=== PATIENT | male | born 1975 | race Caucasian/White ===

== ENCOUNTER 2016-09-27 21:05 | Emergency (ER) | payer SELFPAY ==
[~2016-09-27] VITALS: Ht 182.9 cm; Wt 87.1 kg
--- NOTE | 2016-09-27 21:11 | NUR ---
BBRA; SYNCOPE EPISODE WITH NAUSEA/ VOMIT. GOWNED PT. AWAITING MD ORDER.
[2016-09-27] MEDS ORDERED: IV NS 0.9% 1,000 ML ONE (21:19)
[2016-09-27] MEDS ORDERED: IV SET PRIMARY PUMP SET 1 EA INFUS.SET MC ONE (21:19)
--- NOTE | 2016-09-27 21:20 | NUR ---
DR GREGG AT BEDSIDE FOR EVAL
--- NOTE | 2016-09-27 21:23 | NUR ---
EKG IN PROGRESS
[2016-09-27] MEDS ORDERED: IV NS 0.9% 1,000 ML BAG IV ONE (21:30)
[2016-09-27 21:51] LABS: BASOPHILS % (AUTO) 0.4 % (0.0-2.0); EOSINOPHILS # (AUTO) 0.2 /CMM (0.0-0.7); EOSINOPHILS % (AUTO) 3.3 % (0.0-6.0); HEMATOCRIT 40 % (39-51); HEMOGLOBIN 13.3 g/dL (13.5-17.5); LYMPHOCYTES % (AUTO) 42.3 % (20.0-44.0); MEAN CORPUSCULAR HEMOGLOBIN 30 PG (26.0-33.0); MEAN CORPUSCULAR HGB CONC 33 g/dl (31.0-36.0); MEAN CORPUSCULAR VOLUME 90 fL (80-96); MONOCYTES # (AUTO) 0.7 /CMM (0.1-1.30); MONOCYTES % (AUTO) 9.8 % (2.0-12.0); NEUTROPHILS # (AUTO) 3.2 /CMM (1.8-8.9); NEUTROPHILS % (AUTO) 44.2 % (43.0-81.0); PLATELET COUNT (AUTO) 301 /CMM (150-450); RDW COEFFICIENT OF VARIATION 14.4 (11.5-15.0); RED BLOOD CELL COUNT(AUTO) 4.48 MIL/uL (4.5-6.0); WHITE BLOOD COUNT (AUTO) 7.2 K/uL (4.3-11.0)
[2016-09-27 22:03] LABS: CALCIUM, SERUM 8.6 mg/dL (8.5-10.1); CREATININE 1.1 mg/dL (0.6-1.3)
[2016-09-27 22:10] LABS: POTASSIUM 2.8 mmol/L (3.5-5.1)
[2016-09-27] MEDS ORDERED: POTASSIUM CHLORIDE 20 MEQ TAB.PRT.SR PO ONE ×3 (22:20→22:30)
--- NOTE | 2016-09-27 22:36 | NUR ---
PT OK TO DISCHARGE PER DR JORDAN. IV removed. Catheter intact and site benign. Pressure and 4x4 applied to site. No bleeding noted.Patient discharged to home in stable condition. Written and verbal after care instructions given. Patient verbalizes understanding of instruction.Patient is awake and alert to self, day, and place. PT ambulatory with a steady gait
[2016-09-27 22:37] VITALS: BP 125/74
== END 2016-09-27 22:37 | disposition home or self-care (01) ==
LOC: ER 21:07
DX: R55 Syncope and collapse (principal)
CPT/HCPCS: 36415; 80048; 85025; 93005; 96360; 99285; A4606; J7030; Z7610